=== PATIENT | female | born 1985 | race Caucasian/White ===

== ENCOUNTER → 2016-10-07 | Outpatient (CLI) | payer MEDICAID ==
[2016-10-07 11:19] LABS: CH 33.1; CHCM 33.8; HCT 36.3 % (34.0-46.0); HDW 2.48; HGB 12.2 gm/dL (11.4-16.0); MCHC 33.6 g/dL (31.0-37.0); MCV 98.3 fL (80.0-100.0); Mean Platelet Volume 7.9; RBC 3.69 m/uL (3.80-5.40); RDW 12.8 % (11.5-15.5); WBC 8.2 k/uL (3.8-10.6)
== END | disposition home or self-care (01) ==
LOC: LABWHC1 09:57
PROVIDERS: ATTEND Obstetrics & Gynecology
DX: Z34.92 Encounter for supervision of normal pregnancy, unspecified, second trimester (principal); Z3A.00 Weeks of gestation of pregnancy not specified
CPT/HCPCS: 36415; 82950; 85027

== ENCOUNTER → 2016-10-14 | Outpatient (CLI) | payer MEDICAID ==
[2016-10-14 12:14] LABS: Glucose 3 Hour, Gest 117 mg/dL
== END | disposition home or self-care (01) ==
LOC: LABWHC1 08:04
PROVIDERS: ATTEND Obstetrics & Gynecology
DX: O99.810 Abnormal glucose complicating pregnancy (principal); Z3A.00 Weeks of gestation of pregnancy not specified
CPT/HCPCS: 36415; 82951; 82952

== ENCOUNTER → 2016-11-25 | Outpatient (CLI) | payer MEDICAID ==
--- NOTE | 2016-11-25 11:09 | US ---
EXAMINATION TYPE: US OB anatomy transabd third trimester DATE OF EXAM: 11/25/2016 10:36 AM COMPARISON: 08/31/2016 second trimester ultrasound August 31, 2016 CLINICAL HISTORY: Large for Dates O36.63xo TECHNIQUE: Transabdominal (TA) GESTATIONAL AGE / DATING Physician Established: (32 weeks/1 days) EDC: 01/19/2017 Dates by LMP: (32 weeks/5 days) EDC: 01/19/2017 Dates by First Scan: (31 weeks/6 days) EDC: 01/21/2017 Dates by Current Scan: (32 weeks/3 days) EDC: 01/17/2017 SURVEY IUP: Single PLACENTA: Fundal PREVIA: No Previa ROMARIO: 15.9 cm Normal CERVICAL LENGTH (transabdominal: norm > 3.0cm): cm BIOMETRY PRESENTATION: Vertex LIE: Oblique BPD: 8.0 cm 32 weeks / 1 days HC: 29.4 cm 32 weeks / 3 days AC: 29.0 cm 33 weeks / 0 days FL: 6.2 cm 32 weeks / 2 days ESTIMATED WEIGHT IN GRAMS: 2016 grams ESTIMATED WEIGHT IN LBS/OZS: 4 lbs. 7 oz. WEIGHT PERCENTAGE BASED ON ESTABLISHED DATES: 55% HC/AC: 1.0 Normal FL/AC: 21 Normal HEART RATE: 130 bpm RHYTHM: Normal ANATOMY SEEN (within normal limits): * Lateral Vent (< 1 cm) 0.6 cm * Cisterna Magna (< 1.1 cm) 0.8 cm * Cerebellum (varies with age) 3.5 cm Midline Falx Cavus Septi Pellucidi Four Chamber Heart Outflow tracts: LVOT/RVOT Stomach Situs Nose / Lips Diaphragm Kidneys (bilateral) Bladder Cord Insert Three Vessel Cord Longitudinal Spine Transverse Spine ANATOMY NOT SEEN: * Nuchal Fold (< 0.6 cm) age Choroid Plexus (bilateral) age Arms (bilateral) crowding Legs (bilateral) crowding TECHNOLOGIST IMPRESSION: parameters congruent with age. Single live intrauterine gestation is redemonstrated. Normal cephalad presentation to fetus is curren tly seen. Amniotic fluid index is within normal limits. There is no ultrasound evidence for placenta previa. biometry measurements are congruent and felt within normal limits. Detailed anatomical survey shows no suspicious abnormality. Bilateral upper and lower extremities are not well seen due t o advanced age and crowding but are noted to appeared within normal limits on second trimester ultrasound. IMPRESSION: As above.
== END | disposition home or self-care (01) ==
LOC: RADUSWWP 09:40
PROVIDERS: ATTEND Obstetrics & Gynecology
DX: O36.63X0 Maternal care for excessive fetal growth, third trimester, not applicable or unspecified (principal); Z3A.32 32 weeks gestation of pregnancy
CPT/HCPCS: 76811

== ENCOUNTER 2017-01-13 05:55 | Inpatient (IN) | payer MEDICAID ==
--- NOTE | 2017-01-13 05:54 | P.HPOB ---
History of Present Illness H&P Date: 01/13/17 Chief Complaint: Patient is presenting for induction of labor. This patient is a pleasant 31-year-old 4 para 1 female estimated date of confinement 01/19/2017 estimated gestational age 39-2/7 weeks who presents to labor and delivery for induction of labor. Patient's care is complicated by labor and dilation that began about 32 weeks. Also was seen by maternal medicine for a ultrasound done here that was abnormal however level III ultrasound there was normal. Patient was noted to have a positive REED and has been recommended to have an a testing which has been done. Patient now presents for delivery with a favorable cervix at term. Review of Systems Constitutional: Denies chills, Denies fever Ears, nose, mouth and throat: Denies headache, Denies sore throat Cardiovascular: Denies chest pain, Denies shortness of breath Respiratory: Denies cough Gastrointestinal: Reports heartburn Genitourinary: Reports Menstruation: Reports amenorrhea Musculoskeletal: Denies myalgias Integumentary: Denies pruritus, Denies rash Neurological: Denies numbness, Denies weakness Psychiatric: Denies anxiety, Denies depression Endocrine: Denies fatigue, Denies weight change Past Medical History Past Medical History: Thyroid Disorder Additional Past Medical History / Comment(s): Patient has sinus tachycardia and a history of positive JONNY. Patient also has psoriasis History of Any Multi-Drug Resistant Organisms: None Reported Additional Past Surgical History / Comment(s): D&C Past Anesthesia/Blood Transfusion Reactions: No Reported Reaction Past Psychological History: No Psychological Hx Reported Smoking Status: Never smoker Past Alcohol Use History: None Reported Past Drug Use History: None Reported - Past Family History Father Family Medical History: No Reported History Medications and Allergies Home Medications Medication Instructions Recorded Confirmed Type Levothyroxine Sodium [Synthroid] 25 mcg PO DAILY 07/16/14 11/23/16 History Pnv with Ca,No.72/Iron/FA 1 each PO DAILY 12/10/15 11/23/16 History [ Plus Tablet] Allergies Allergy/AdvReac Type Severity Reaction Status Date / Time No Known Allergies Allergy Verified 11/23/16 22:58 Exam - OBG Physical Exam Abdomen: bowel sounds normal, no diffuse tenderness, no bruit present, no guarding noted, no hepatomegaly, no splenomegaly, no mass Vagina: normal moisture, no discharge Cervix: no lesion (Cervix in the office was 4 cm dilated.), no discharge Uterus: enlarged (Fundal height was 38 cm.) Results blood work shows she is O+, rubella low positive, RPR nonreactive, hepatitis B negative she did have a [place] screen which was normal 46 excess, she is a abnormal Glucola with a normal three-hour gtt., group B strep was negative, ultrasounds as above. Assessment and Plan (1) Third trimester Narrative/Plan: This is a pleasant 31-year-old 4 para 1 female 39-2/7 weeks gestation who is admitted to labor and delivery for induction of labor. Plan is induction of labor and anticipate vaginal delivery. Status: Acute (2) Elective induction of labor planned Status: Acute
[2017-01-13] MEDS ORDERED: CARBOPROST TROMETHAMINE 250 MCG/ML 1 ML AMP IM PRN (06:04)
[2017-01-13] MEDS ORDERED: LIDOCAINE 1% (PF) 10 MG/ML (30 ML SDV) SQ PRN (06:04)
[2017-01-13] MEDS ORDERED: TERBUTALINE 1 MG/ML VIAL SQ PRN (06:04)
[2017-01-13] MEDS ORDERED: METHYLERGONOVINE 0.2 MG/ML 1 ML AMP IM PRN (06:04)
[2017-01-13] MEDS ORDERED: OXYTOCIN 10 UNIT/ML 1 ML VIAL IM PRN (06:04)
[2017-01-13] MEDS ORDERED: OXYTOCIN 20 UNITS/1000 ML NS 1,000 ML IV SCH ×2 (06:04→10:53)
[2017-01-13 06:25] VITALS: BMI 24.0
[2017-01-13] MEDS: LACTATED RINGERS 1,000 ML IV SCH ×2 (06:26→09:06)
[2017-01-13 06:47] LABS: Basophils % (A) 0 %; CH 33.1; CHCM 35.2; Eosinophils # (A) 0.1 k/uL (0-0.7); Eosinophils % (A) 1 %; HCT 38.5 % (34.0-46.0); HDW 2.67; HGB 13.5 gm/dL (11.4-16.0); Luc # (Auto) 0.31; Luc % (Auto) 3; Lymphocytes # (A) 1.2 k/uL (1.0-4.8); Lymphocytes % (A) 13 %; MCH 33.1 pg (25.0-35.0); MCV 94.5 fL (80.0-100.0); Mean Platelet Volume 7.6; Monocytes # (A) 0.7 k/uL (0-1.0); Monocytes % (A) 7 %; Neutrophils % (A) 75 %; RBC 4.07 m/uL (3.80-5.40); RDW 12.9 % (11.5-15.5); WBC 9.3 k/uL (3.8-10.6); WBC (Perox) 8.98
[2017-01-13] MEDS ORDERED: fentaNYL (PF) 50 MCG/ML 5 ML AMP ONE (08:23)
[2017-01-13] MEDS ORDERED: BUPIVACAINE (PF) 0.25% 30 ML VIAL ONE (08:23)
[2017-01-13] MEDS ORDERED: SODIUM CHLORIDE 0.9% 100 ML BAG ONE (08:23)
[2017-01-13] MEDS ORDERED: BUPIVACAINE (PF) 0.25% 25 ML, fentaNYL (PF) 200 MCG in SODIUM CHLORIDE 0.9% 71 ML EPIDURAL ONE (08:40)
[2017-01-13] MEDS ORDERED: diphenhydrAMINE 25 MG CAP PO PRN (10:53)
[2017-01-13] MEDS ORDERED: diphenhydrAMINE 50 MG/ML 1 ML VIAL IVP PRN (10:53)
[2017-01-13] MEDS ORDERED: LANOLIN CREAM 5 GM TUBE TOPICAL PRN (10:53)
[2017-01-13] MEDS ORDERED: ZOLPIDEM 5 MG TAB PO PRN (10:53)
[2017-01-13] MEDS ORDERED: WITCH HAZEL 1 EACH MED..PAD TOPICAL PRN (10:53)
[2017-01-13] MEDS ORDERED: BISACODYL 10 MG SUPP RECTAL PRN (10:53)
[2017-01-13] MEDS ORDERED: HYDROCORTISONE 2.5% RECTAL CREAM 30 GM TUBE RECTAL PRN (10:53)
[2017-01-13] MEDS ORDERED: Acetaminophen-Codeine 300-30mg TAB PO PRN ×2 (10:53)
[2017-01-13] MEDS ORDERED: IBUPROFEN 600 MG TAB PO PRN (10:53)
[2017-01-13] MEDS ORDERED: ACETAMINOPHEN TAB 325 MG TAB PO PRN (10:53)
[2017-01-13] MEDS ORDERED: MEASLES-MUMPS-RUBELLA VACC/PF 12,500 UNIT/0.5 ML VIAL SQ ONE (10:53)
[2017-01-13] MEDS ORDERED: SIMETHICONE 80 MG CHEWABLE PO PRN (10:53)
[2017-01-13] MEDS ORDERED: BENZOCAINE/MENTHOL SPRAY 1 GM/SPRAY AEROSOL TOPICAL PRN (10:53)
--- NOTE | 2017-01-13 12:31 | P.PROBDLV ---
Vaginal Delivery Note - . Vaginal Delivery Note: Normal vaginal delivery viable female Apgars 8 and 9 delivery time is 1045 hrs. Please see dictated H&P for intimate details of this patient's admission. Brief summary this is a pleasant 31-year-old 4 para 1 female 39 and one sevenths weeks gestation who is admitted to labor and delivery for induction of labor. On admission patient is 4 cm dilated has artificial rupture of membranes for clear fluid. Labor is induced with Pitocin per protocol. Patient does get an epidural for pain control. Labor progresses quickly and the patient does get to complete and pushes the head to the perineum. The posterior perineum was infiltrated 1% lidocaine and a midline episiotomy is made. We then have controlled delivery of the infant's head over the perineum. Mouth and nares are bulb suctioned. There is a nuchal cord which is easily reduced. We then have delivery with gentle downward traction of the anterior shoulder and posterior shoulder and rest this 's body. This is a vigorous viable female Apgars are 8 and 9 delivery time is 1045 hrs. After delivery of the infant the umbilical cord is doubly clamped and cut and appears to be trivascular. The placenta spontaneously delivered intact. Inspection of the perineum shows a second-degree laceration which was repaired with 3-0 Vicryl in the usual fashion. Excellent reapproximation is noted. and mother are stable delivery room. All counts are correct 3. There are no complications.
[2017-01-13 13:07] VITALS: RESP 16
[2017-01-13] MEDS: SENNOSIDES-DOCUSATE SODIUM 1 EACH TAB PO SCH ×2 (19:49→21:48)
--- NOTE | 2017-01-14 05:37 | P.PNOBGVD ---
Subjective - Subjective Patient reports: Reports appetite normal, Reports voiding normally, Reports pain well controlled, Reports ambulating normally : doing well Objective - Latest Vital Signs Latest vital signs: Vital Signs Temp Pulse Pulse Resp BP 01/14/17 00:00 98.2 F 86 16 115/75 01/13/17 20:00 97.4 F L 98 16 110/70 01/13/17 16:00 97.8 F 101 H 16 125/75 01/13/17 12:50 116 H 16 121/68 01/13/17 12:20 121 H 18 113/75 01/13/17 11:50 103 H 18 109/70 01/13/17 11:35 91 18 119/74 01/13/17 11:20 97.3 F L 96 18 134/81 01/13/17 11:05 96 18 119/73 01/13/17 10:50 108 H 18 114/67 01/13/17 06:20 97.5 F L 136 H 16 113/81 Intake and Output 01/13/17 01/13/17 01/14/17 14:59 22:59 06:59 Intake Total 513.3 Balance 513.3 Intake: Intake, IV Titration 513.3 Amount Oxytocin 20 Units/1000 ml 513.3 Ns 1,000 ml @ 1 MILLIUNIT/MIN 3 mls/hr IV .Q24H [facility] Rx#:[id number] Other: # Voids 1 1 - Exam Lungs: bilateral: normal Chest: Normal S1, Normal S2 Extremities: Present: normal Abdomen: Present: normal appearance, soft Uterus: Present: normal, firm Assessment and Plan (1) Third trimester Narrative/Plan: day #1. Patient is resting without complaints. She wishes to go home later today. Vital signs are stable she is afebrile. Uterus is firm nontender she's having normal lochia. My impression is a normal course. Plan is to continue routine care discharge home later today Current Visit: No Status: Acute Code(s): Z33.1 - STATE, INCIDENTAL SNOMED Code(s): 01012711 (2) Elective induction of labor planned Current Visit: No Status: Acute Code(s): DND0830 - SNOMED Code(s): 502035822
--- NOTE | 2017-01-14 05:39 | P.DS ---
Providers Date of admission: 01/13/17 05:55 Expected date of discharge: 01/14/17 Attending physician: Jairo Ellis Primary care physician: Jairo Ellis - Discharge Diagnosis(es) (1) Third trimester Current Visit: No Status: Acute (2) Elective induction of labor planned Current Visit: No Status: Acute Hospital Course: Please see dictated H&P for intimate details of this patient's admission. Brief summary this is a pleasant 31-year-old 4 para 1 female estimated gestational age 39 and one sevenths weeks gestation who is admitted to labor and delivery for elective induction of labor. Patient is admitted undergoes uncomplicated induction of labor and has a vaginal delivery viable female infant. Please see dictated delivery note. day 1 patient's felt to be stable for discharge home follow up with me in 6 weeks. Procedures: Normal spontaneous vaginal delivery. Patient Condition at Discharge: Good Plan - Discharge Summary New Discharge Prescriptions: Acetaminophen-Codeine 300-30mg [Tylenol w/codeine #3] 1 - 2 each PO Q4HR PRN # 30 tab PRN Reason: Mild Pain exceeding Tylenol Ibuprofen [Motrin] 600 mg PO Q6HR PRN #40 tab PRN Reason: Mild Pain Or Fever >= 100.5 Discharge Medication List Levothyroxine Sodium [Synthroid] 67.5 mcg PO DAILY 07/16/14 [History] Pnv with Ca,No.72/Iron/FA [ Plus Tablet] 1 each PO DAILY 12/10/15 [ History] Acetaminophen-Codeine 300-30mg [Tylenol w/codeine #3] 1 - 2 each PO Q4HR PRN # 30 tab 01/13/17 [Rx] Ibuprofen [Motrin] 600 mg PO Q6HR PRN #40 tab 01/13/17 [Rx] Follow up Appointment(s)/Referral(s): Jairo Ellis MD [Primary Care Provider] - 02/18/17 9:45 am Patient Instructions/Handouts: Vaginal Delivery (DC) Activity/Diet/Wound Care/Special Instructions: No intercourse or anything per vagina for 6 weeks. Please call if any fever, chills, excessive vaginal bleeding, and/or abdominal pain. Discharge Disposition: HOME SELF-CARE
[2017-01-14 09:35] VITALS: BP 110/68; PULSE 87; TEMP 98.4
[2017-01-14] MEDS: SENNOSIDES-DOCUSATE SODIUM 1 EACH TAB PO SCH (09:38)
== END 2017-01-14 12:15 | disposition home or self-care (01) | DRG 775 ==
LOC: 4FBP 05:55
PROVIDERS: ADMIT Obstetrics & Gynecology; ATTEND Obstetrics & Gynecology
PROC: 3E0R3CZ (ICD-10-PCS; principal; 2017-01-13)
PROC: 0KQM0ZZ Repair Perineum Muscle, Open Approach (ICD-10-PCS; principal; 2017-01-13)
PROC: 10907ZC Drainage of Amniotic Fluid, Therapeutic from Products of Conception, Via Natural or Artificial Opening (ICD-10-PCS; principal; 2017-01-13)
PROC: 0W8NXZZ Division of Female Perineum, External Approach (ICD-10-PCS; principal; 2017-01-13)
PROC: 00HU33Z Insertion of Infusion Device into Spinal Canal, Percutaneous Approach (ICD-10-PCS; principal; 2017-01-13)
PROC: 3E033VJ Introduction of Other Hormone into Peripheral Vein, Percutaneous Approach (ICD-10-PCS; principal; 2017-01-13)
PROC: 10E0XZZ Delivery of Products of Conception, External Approach (ICD-10-PCS; principal; 2017-01-13)
DX: O69.81X0 Labor and delivery complicated by cord around neck, without compression, not applicable or unspecified (principal); E07.9 Disorder of thyroid, unspecified; Z37.0 Single live birth; O70.1 Second degree perineal laceration during delivery; Z3A.39 39 weeks gestation of pregnancy; O99.284 Endocrine, nutritional and metabolic diseases complicating childbirth; Z79.899 Other long term (current) drug therapy
CPT/HCPCS: 85025; 88307; 90471; 90707

== ENCOUNTER → 2018-08-07 | Outpatient (CLI) | payer MEDICAID ==
--- NOTE | 2018-08-07 15:30 | US ---
EXAMINATION TYPE: US thyroid st tissue head/neck DATE OF EXAM: 08/07/2018 COMPARISON: NONE CLINICAL HISTORY: R13.10 Dysphagia, patient on thyroid meds, hypothyroidism GLAND SIZE: Right Lobe: 4.3 x 0.7 x 0.8 cm Overall Parenchyma: Slightly heterogenous Left Lobe: 4.0 x 0.7 x 0.8 cm Overall Parenchyma: Slightly heterogenous Isthmus Thickness: 0.2 cm NODULES RIGHT: # of nodules measured on right: 0 LEFT: # of nodules measured on left: 0 ISTHMUS: # of nodules measured in the isthmus: 0 Bilateral neck scanned, no evidence of lymphadenopathy. IMPRESSION: Prominent size of the there is slightly heterogenous thyroid gland without measurable nodule.
== END | disposition home or self-care (01) ==
LOC: RADUSWWP 14:07
PROVIDERS: ATTEND Internal Medicine
DX: E07.89 Other specified disorders of thyroid (principal)
CPT/HCPCS: 76536

== ENCOUNTER → 2018-08-15 | Outpatient (CLI) | payer MEDICAID ==
--- NOTE | 2018-08-15 11:05 | USB ---
Reason for exam: clinical finding. History: Family history of breast cancer in maternal grandmother. Took hormonal contraceptives for 3 years. Physical Findings: Nurse Summary: Patient complains of lump x 18 months, no breast feeding x 1 year, patient thinks its smaller now (nurse eddi). US Breast LT Left complete breast ultrasound includes all four quadrants, the retroareolar region and axilla. Finding demonstrates a 2.7 x 1.1 x 2.1cm solid, vascular lesion at 3 o'clock and a 0.4 x 0.4 x 0.4cm mixed lesion at the posterior nipple. These results were verbally communicated with the patient and result sheet given to the patient on 08/15/18. ASSESSMENT: Suspicious, BI-RAD 4 RECOMMENDATION: Ultrasound core biopsy of the left breast. Called Dr. Aceves with mammographic findings and has scheduled an appointment for the patient for 09/07/18 at 11:[address] Narayan. Biopsy scheduled for 08/28/18 at 12:20. PRELIMINARY REPORT CALLED AND FAXED TO DR. NARAYAN ON 08/15/18.
== END ==
LOC: RADUSWWP 09:33
PROVIDERS: ATTEND Internal Medicine
DX: N63.20 Unspecified lump in the left breast, unspecified quadrant (principal)

== ENCOUNTER → 2018-08-28 | Day surgery (SDC) | payer MEDICAID ==
[2018-08-28 11:33] VITALS: RESP 16; BMI 17.8
[2018-08-28 13:23] VITALS: BP 109/68; PULSE 76; TEMP 99
--- NOTE | 2018-08-28 14:06 | USB ---
EXAMINATION TYPE: US biopsy breast VAD LT DATE OF EXAM: 08/28/2018 CLINICAL HISTORY: 33-year-old female with palpable mass that developed during recent breast-feeding. R92.8 . TECHNIQUE: Ultrasound guided core biopsy of the left breast. COMPARISON: Ultrasound 08/15/2018 FINDINGS: The procedure of ultrasound guided core biopsy was explained to the patient. Benefits, alternatives, and risks were discussed. An informed consent was then obtained. The patient was placed in supine positioning for imaging and for the procedure. The overlying skin was prepped and draped in usual sterile fashion. Lidocaine buffered with bicarbonate was used as anesthetic into the skin followed by lidocaine/epinephrine mixture into the subcutaneous tissues to the area of concern in the right o'clock left breast. Under ultrasound guidance, a 13-gauge vacuum assisted Mammotome Elite biopsy gun device was used to obtain 7 core samples. Following this, a coil clip was left in lesion. The patient tolerated the procedure well without any immediate complication. The patient was kept in the radiology department for short stay after the procedure and then discharged home in stable condition. Postprocedure mammogram was deferred due to patient's young age and presence of the clinically apparent palpable abnormality. If excision is warranted in the future, mammogram can be obtained at that time if needed. IMPRESSION: Successful, uncomplicated ultrasound guided core biopsy of palpable area of concern in the 3:00 left breast with some differential considerations including large fibroadenoma, lactating adenoma, and phyllodes tumor. Full pathology results to follow. Pathology Results: Benign CORE BIOPSY, LEFT BREAST: Granulomatous mastitis. Negative for malignancy. Microcalcifications are present. AFB and GMS stains are negative for acid fast bacilli and fungi respectively. Recommendation Follow up ultrasound of the left breast in 6 months. SCOTTD
== END | disposition home or self-care (01) ==
LOC: RADUSWWP 11:20
PROVIDERS: ATTEND Surgery
DX: N61.0 Mastitis without abscess (principal)
CPT/HCPCS: 88305; 88312; 19083; A4648; J2001

== ENCOUNTER → 2019-08-29 | Outpatient (CLI) | payer BC ==
--- NOTE | 2019-08-29 11:44 | USB ---
Reason for exam: clinical finding. History: Family history of breast cancer in maternal grandmother. Benign US biopsy breast VAD LT of the left breast, August 28, 2018. Took hormonal contraceptives for 3 years. Physical Findings: Nurse Summary: small 0.2cm movable lump 2 o'clock left breast (nurse TM). US Breast LT Technologist: Damaris Pfeiffer Left complete breast ultrasound includes all four quadrants, the retroareolar region and axilla. Finding demonstrates a 2.6 x 1.3 x 0.7cm mixed, vascular lesion at 3 o'clock, biopsy benign and a 0.5 x 0.5 x 0.3cm cystic stable lesion at the posterior nipple. These results were verbally communicated with the patient and result sheet given to the patient on 08/29/19. ASSESSMENT: Benign, BI-RAD 2 RECOMMENDATION: Routine screening mammogram of both breasts at age 39.
== END | disposition home or self-care (01) ==
LOC: RADUSWWP 10:01
PROVIDERS: ATTEND Surgery
DX: R92.8 Other abnormal and inconclusive findings on diagnostic imaging of breast (principal)

== ENCOUNTER 2019-12-27 12:11 | Emergency (ER) | payer BC, OTHER ==
[2019-12-27 12:17] VITALS: BP 111/73; PULSE 82; RESP 18; TEMP 98.7
[2019-12-27] MEDS ORDERED: FLUORESCEIN STRIPS 1 MG STRIP LEFT EYE ONE (12:35)
[2019-12-27] MEDS ORDERED: PROPARACAINE 0.5% OPHTH DROPS 15 ML BTL LEFT EYE STA (12:35)
--- NOTE | 2019-12-27 12:42 | ED ---
Eye Problem HPI - General Chief complaint: Needlestick/Exposure Stated complaint: Bodily fluid from patient in eye Time Seen by Provider: 12/27/19 12:27 Source: patient Mode of arrival: ambulatory Limitations: no limitations - History of Present Illness Initial comments: Patient is a 34-year-old female presenting to the emergency department with exposure to bodily fluids in her left eye. Patient is an employee here at the hospital and states she was emptying a dialysis bag when the tube flipped back and splashed fluid into her left eye. Patient states she flushed her eye with 50ml of sterile saline. Patient states her left eye does feel irritated however there is no pain and she does not believe there is any foreign body. She denies any loss of vision or blurry vision. She denies wearing contacts. She has no other complaints. On arrival to the ER, her vitals are stable. - Related Data Home Medications Medication Instructions Recorded Confirmed Levothyroxine Sodium [Synthroid] 125 mcg PO DAILY 08/23/18 08/28/18 Omeprazole [PriLOSEC] 1 tab PO DAILY 08/28/18 08/28/18 Allergies Allergy/AdvReac Type Severity Reaction Status Date / Time No Known Allergies Allergy Verified 08/28/18 11:27 Review of Systems ROS Statement: Those systems with pertinent positive or pertinent negative responses have been documented in the HPI. ROS Other: All systems not noted in ROS Statement are negative. Past Medical History Past Medical History: Thyroid Disorder Additional Past Medical History / Comment(s): psoriasis History of Any Multi-Drug Resistant Organisms: None Reported Additional Past Surgical History / Comment(s): D&C Past Anesthesia/Blood Transfusion Reactions: No Reported Reaction Past Psychological History: Anxiety Smoking Status: Former smoker Past Alcohol Use History: None Reported Past Drug Use History: None Reported - Past Family History Father Family Medical History: No Reported History Mother Additional Family Medical History / Comment(s): Sinus Tachycardia General Exam - General Exam Comments Initial Comments: GENERAL: Well-appearing, well-nourished and in no acute distress. HEAD: Atraumatic, normocephalic. EYES: Pupils equal round and reactive to light, extraocular movements intact, sclera anicteric, conjunctiva are normal. Normal eye exam under foreseen stain. No foreign objects or other abnormality seen in left eye. ENT: TMs normal, nares patent, oropharynx clear without exudates. Moist mucous membranes. NECK: Normal range of motion, supple without lymphadenopathy or JVD. LUNGS: Breath sounds clear to auscultation bilaterally and equal. No wheezes rales or rhonchi. HEART: Regular rate and rhythm without murmurs, rubs or gallops. ABDOMEN: Soft, nontender, normoactive bowel sounds. No guarding, no rebound. No masses appreciated. : Deferred EXTREMITIES: Normal range of motion, no pitting or edema. No clubbing or cyanosis. NEUROLOGICAL: Normal speech, normal gait. PSYCH: Normal mood, normal affect. SKIN: Warm, Dry, normal turgor, no rashes or lesions noted. Limitations: no limitations Course Vital Signs 12/27/19 12:12 Temperature 98.7 F Pulse Rate 82 Respiratory 18 Rate Blood Pressure 111/73 O2 Sat by Pulse 96 Oximetry Medical Decision Making - Medical Decision Making 34-year-old female presenting with left eye irritation after dialysis bag contents splashed in left eye. PT flushed eye before arrival. PT's eye was then flushed with another 50ml of sterile saline in the ER. Patient's exam was normal today. No changes in visual acuity. No foreign objects seen. Patient declines prophylactic treatment at this time. Patient is up-to-date with her vaccines. Patient is stable for discharge and will follow-up with employee health. The sources blood was tested and is negative for rapid HIV testing. She is agreement with this plan of care. Patient discussed with Dr. Bass. Disposition Clinical Impression: Irritation of left eye Disposition: HOME SELF-CARE Condition: Stable Instructions (If sedation given, give patient instructions): Body Substance Exposure (ED) Additional Instructions: Please return to the Emergency Department if symptoms worsen or any other concerns. Follow-up with employee health as needed Is patient prescribed a controlled substance at d/c from ED?: No Referrals: Marquis Aceves MD [Primary Care Provider] - 1-2 days
== END 2019-12-27 14:45 ==
LOC: EC 12:11
DX: H57.89 Other specified disorders of eye and adnexa (principal); Z77.21 Contact with and (suspected) exposure to potentially hazardous body fluids; E07.9 Disorder of thyroid, unspecified; Z79.890 Hormone replacement therapy; Z79.899 Other long term (current) drug therapy; Z87.891 Personal history of nicotine dependence
CPT/HCPCS: 99283

== ENCOUNTER → 2020-01-22 | Outpatient (CLI) | payer BC | END | disposition home or self-care (01) | LOC: LABWHC1 07:27 | PROVIDERS: ATTEND Pediatrics Pediatric Infectious Diseases | DX: U07.1 COVID-19 (principal) | CPT/HCPCS: 87635 ==

== ENCOUNTER → 2020-06-24 | Outpatient (CLI) | payer BC ==
[2020-06-24 10:43] LABS: Basophils % (A) 1 %; Eosinophils # (A) 0.2 k/uL (0-0.7); Eosinophils % (A) 3 %; HCT 44.5 % (34.0-46.0); HGB 14.4 gm/dL (11.4-16.0); Lymphocytes # (A) 1.2 k/uL (1.0-4.8); Lymphocytes % (A) 22 %; MCHC 32.3 g/dL (31.0-37.0); MCV 99.2 fL (80.0-100.0); Mean Platelet Volume 7.9; Monocytes # (A) 0.3 k/uL (0-1.0); Monocytes % (A) 6 %; Neutrophils # (A) 3.7 k/uL (1.3-7.7); Neutrophils % (A) 67 %; Platelet Count 180 k/uL (150-450); RBC 4.49 m/uL (3.80-5.40); RDW 11.9 % (11.5-15.5); WBC 5.4 k/uL (3.8-10.6)
[2020-06-24 20:24] LABS: ALT 11 U/L (8-44); AST 23 U/L (13-35); African American GFR (CKD) 110.7 (60.0-200.0); Albumin/Globulin Ratio 1.84 (1.60-3.17); Alkaline Phosphatase 44 U/L (41-126); BUN/Creat Ratio 16.25 Ratio (12.00-20.00); Calcium 9.4 mg/dL (8.7-10.3); Carbon Dioxide 25.2 mmol/L (21.6-31.8); Chloride 105 mmol/L (96-109); Chol/HDL Ratio 2.41; Cholesterol 181 mg/dL (0-200); Globulin 2.5 g/dL (1.6-3.3); Glucose 87 mg/dL (70-110); Non-African American GFR(CKD) 95.5 (60.0-200.0); Potassium 3.8 mmol/L (3.5-5.5); Sodium 140 mmol/L (135-145); Total Bilirubin 0.7 mg/dL (0.2-1.2); Total Protein 7.1 g/dL (6.2-8.2); Triglycerides <50.0 mg/dL (0.0-149.0)
== END | disposition home or self-care (01) ==
LOC: LABWHC1 08:48
PROVIDERS: ATTEND Physician Assistant
DX: Z00.01 Encounter for general adult medical examination with abnormal findings (principal); E03.9 Hypothyroidism, unspecified; Z13.220 Encounter for screening for lipoid disorders
CPT/HCPCS: 36415; 80053; 80061; 84443; 85025

== ENCOUNTER → 2021-07-02 | Outpatient (CLI) | payer BC, OTHER | END | disposition home or self-care (01) | LOC: LABWHC1 08:58 | PROVIDERS: ATTEND Emergency Medicine | DX: Z20.822 Contact with and (suspected) exposure to COVID-19 (principal) | CPT/HCPCS: 87635 ==

== ENCOUNTER → 2021-07-03 | Outpatient (CLI) | payer BC, OTHER | END | disposition home or self-care (01) | LOC: LABWHC1 08:55 | PROVIDERS: ATTEND Emergency Medicine | DX: Z20.822 Contact with and (suspected) exposure to COVID-19 (principal) | CPT/HCPCS: 87635 ==

== ENCOUNTER → 2021-08-12 | Outpatient (CLI) | payer BC, OTHER | END | disposition home or self-care (01) | LOC: LABWHC1 12:18 | PROVIDERS: ATTEND Emergency Medicine | DX: U07.1 COVID-19 (principal) | CPT/HCPCS: 87635 ==

== ENCOUNTER → 2021-09-23 | Outpatient (CLI) | payer OTHER, MEDICAID | END | disposition home or self-care (01) | LOC: LABWHC1 11:01 | PROVIDERS: ATTEND Obstetrics & Gynecology | DX: N83.209 Unspecified ovarian cyst, unspecified side (principal) | CPT/HCPCS: 36415; 86304 ==

== ENCOUNTER 2022-02-19 10:07 | Day surgery (SDC) | payer MEDICAID ==
[2022-02-17 13:01] VITALS: BMI 19.2
[~2022-02-19 10:07] MED LIST: LACTATED RINGERS 1,000 ML IV SCH; LIDOCAINE 1% (10MG/ML) FOR IV START INTRADERMA PRN
[2022-02-19 10:36] VITALS: RESP 16; TEMP 98.3
[2022-02-19] MEDS ORDERED: fentaNYL (PF) 50 MCG/ML 2 ML AMP ONE (11:07)
[2022-02-19] MEDS ORDERED: MIDAZOLAM 2 MG/2 ML VIAL ONE (11:07)
[2022-02-19] MEDS ORDERED: PROPOFOL 10 MG/ML 20 ML VIAL IV ONE (11:07)
--- NOTE | 2022-02-19 11:23 | P.PCN ---
Date of Procedure: 02/19/22 Preoperative Diagnosis: GERD Postoperative Diagnosis: Gastritis Duodenitis Procedure(s) Performed: EGD with biopsy Anesthesia: PITO Surgeon: Guillermo Rseendez Pathology: other (Biopsies of duodenum, antrum, esophagus) Condition: stable Disposition: same day Indications for Procedure: 36-year-old female with symptoms of GERD. She has been on PPI and recently with Carafate with some minimal success. Plan is for upper endoscopy for further evaluation. Operative Findings: Inflammatory changes of the antrum of the duodenum Description of Procedure: The patient was brought to the endoscopy suite and placed in left lateral decubitus position and adequate sedation was achieved using conscious sedation. A bite block was placed and an endoscope was placed in the oropharynx and advanced under endoscopic visualization. The endoscope was advanced through the esophagus into the stomach, through the gastric antrum and in through the pylorus. The third portion of the duodenum was visualized. The endoscope was then slowly withdrawn. The first portion the duodenum was noted to have mild inflammatory changes. Biopsies were taken. The antrum was noted to have inflammatory changes. Biopsies were taken. The gastric body distended normally and the gastric folds appeared normal and flattened with insufflation. A retroflexed view of the fundus and GE junction revealed no significant hiatal hernia. The esophagus appeared endoscopically normal. Biopsies of the distal esophagus were taken. Excess air was removed and the scope was withdrawn and the procedure completed. The patient was then sent to PACU in stable condition.
[2022-02-19 11:42] VITALS: PULSE 72
[2022-02-19 11:53] VITALS: BP 93/57
== END 2022-02-19 12:09 | disposition home or self-care (01) ==
LOC: ORWHC2ENDO 10:07
PROVIDERS: ATTEND Surgery
DX: K21.00 Gastro-esophageal reflux disease with esophagitis, without bleeding (principal); K29.50 Unspecified chronic gastritis without bleeding; K29.80 Duodenitis without bleeding
CPT/HCPCS: 43239; 81025; 88305; J2250; J3010; J2704

== ENCOUNTER → 2022-09-13 | Outpatient (CLI) | payer MEDICAID ==
[2022-09-13 14:19] LABS: Basophils # (A) 0.05 X 10*3/uL (0.00-0.10); Basophils % (A) 0.8 %; Eosinophils # (A) 0.25 X 10*3/uL (0.04-0.35); Eosinophils % (A) 4.1 %; HCT 39.6 % (37.2-46.3); HGB 13.1 g/dL (12.0-15.0); Immature Grans, Automated 0.3 %; Lymphocytes # (A) 1.14 X 10*3/uL (0.90-5.00); Lymphocytes % (A) 18.6 %; MCH 30.6 pg (27.0-32.0); MCHC 33.1 g/dL (32.0-37.0); MCV 92.5 fL (80.0-97.0); Monocytes # (A) 0.62 X 10*3/uL (0.20-1.00); Monocytes % (A) 10.1 %; NRBC Per 100 WBC 0 /100 WBCS (0.0-0.0); Neutrophils # (A) 4.04 X 10*3/uL (1.80-7.70); Neutrophils % (A) 66.1 %; Platelet Count 206 X 10*3/uL (140-440); RBC 4.28 X 10*6/uL (4.10-5.20); RDW 12.4 % (11.5-14.5); WBC 6.12 X 10*3/uL (4.50-10.00)
[2022-09-13 14:32] LABS: Erythrocyte Sedimentation Rate 6 mm/Hr (0-20)
[2022-09-13 14:36] LABS: ALT 9 U/L (8-44); AST 22 U/L (13-35); African American GFR (CKD) 104.3 (60.0-200.0); Albumin 4.4 g/dL (3.8-4.9); Albumin/Globulin Ratio 1.59 (1.60-3.17); Alkaline Phosphatase 54 U/L (41-126); BUN/Creat Ratio 13.32 Ratio (12.00-20.00); Calcium 9.4 mg/dL (8.7-10.3); Carbon Dioxide 26.6 mmol/L (20.0-27.5); Chloride 102 mmol/L (96-109); Chol/HDL Ratio 3.28 Ratio; Globulin 2.7 g/dL (1.6-3.3); Glucose 96 mg/dL (70-110); LDL Cholesterol,Calculated 127.7 mg/dL (0.0-131.0); Potassium 3.9 mmol/L (3.5-5.5); Rheumatoid Factor, Qnt <10 IU/mL (0-15); Sodium 140 mmol/L (135-145); Total Protein 7.1 g/dL (6.2-8.2); VLDL Calculation 18.26 mg/dL (5.00-40.00)
[2022-09-13 19:17] LABS: Gliadin AB IgA, Deaminated NEGATIVE (NEGATIVE); Gliadin AB IgA, Unit <0.2 U/mL; Gliadin AB IgG, Deaminated NEGATIVE (NEGATIVE); Gliadin AB IgG, Unit 0.5 U/mL
[2022-09-15 07:38] LABS: ANA Pattern Speckled
== END | disposition home or self-care (01) ==
LOC: LABWHC1 07:05
PROVIDERS: ATTEND Physician Assistant
DX: Z00.01 Encounter for general adult medical examination with abnormal findings (principal); Z13.220 Encounter for screening for lipoid disorders; E03.9 Hypothyroidism, unspecified; K58.0 Irritable bowel syndrome with diarrhea
CPT/HCPCS: 36415; 80053; 80061; 83516; 84443; 85025; 85652; 86038; 86039; 86431

== ENCOUNTER → 2023-10-05 | Outpatient (CLI) | payer MEDICAID ==
--- NOTE | 2023-10-05 20:10 | MM ---
Reason for Exam: Screening (asymptomatic). Baseline mammogram. Patient History: Menarche at age 11. First Full-Term at age 30. Late child-bearing (after 29). Patient used Hormonal Contraceptives for 3 years. 08/28/2018, Benign Core Biopsy on the left side. Maternal grandmother had breast cancer. Last menstrual period: 09/17/2023 Risk Values: Marcelina 5 year model risk: 1.1%. NCI Lifetime model risk: 16.6%. Prior Study Comparison: Patient's first Mammogram. No prior studies available for comparison. Tissue Density: The breast tissue is heterogeneously dense. This may lower the sensitivity of mammography. Findings: Analyzed By CAD. Microclip left breast from prior biopsy. Grouped calcifications posterior upper outer quadrant left breast for which further magnification views are recommended. Otherwise, no discrete abnormality is seen. Overall Assessment: Incomplete: need additional imaging evaluation, BI-RAD 0 Management: Special View Mammogram of the left breast. Diagnostic Breast Ultrasound of the left breast. Additional views for the microcalcifications. Ultrasound for the patient reported lump.. [facility] will attempt to contact patient to return for supplemental views and ultrasound if indicated. Electronically signed and approved by: Martinez Kohli M.D. Radiologist
== END | disposition home or self-care (01) ==
LOC: RADMAMWWP 11:18
PROVIDERS: ATTEND Pediatrics
DX: Z12.31 Encounter for screening mammogram for malignant neoplasm of breast (principal); Z80.3 Family history of malignant neoplasm of breast
CPT/HCPCS: 77063; 77067

== ENCOUNTER → 2024-01-09 | Outpatient (CLI) | payer MEDICAID ==
--- NOTE | 2024-01-09 13:24 | MM ---
Reason for Exam: Follow-up at short interval from prior study. Last screening mammogram was performed 3 month(s) ago. Patient History: Menarche at age 11. First Full-Term at age 30. Late child-bearing (after 30). Patient used Hormonal Contraceptives for 3 years. 08/28/2018, Benign Core Biopsy on the left side. Maternal grandmother had breast cancer. Last menstrual period: 12/26/2023 Risk Values: Marcelina 5 year model risk: 1.1%. NCI Lifetime model risk: 16.6%. Prior Study Comparison: 10/05/2023 Bilateral MG 3D screening mammo w/cad, [facility]. Tissue Density: Left: There are scattered areas of fibroglandular density. Findings: Analyzed By CAD. Grouped calcifications in the left breast immediately adjacent to a biopsy clip felt to be postsurgical. No suspicious masses or organizing fluid collection. Overall Assessment: Benign, BI-RAD 2 Management: Screening Mammogram of both breasts in 1 year. Results were given to the patient verbally at the time of exam. Patient should continue monthly self-breast exams. A clinical breast exam by your physician is recommended on an annual basis. This exam should not preclude additional follow-up of suspicious palpable abnormalities. Note on Marcelina scores and lifetime risk: 1. A Marcelina score greater than 3% is considered moderate risk. If this is the case, consider specialist referral to assess eligibility for a risk reducing agent. 2. If overall lifetime risk for the development of breast cancer is 20% or higher, the patient may qualify for future screening with alternating mammogram and breast MRI. Electronically signed and approved by: Perez Mccllelan DO
== END | disposition home or self-care (01) ==
LOC: RADMAMWWP 12:49
PROVIDERS: ATTEND Pediatrics
DX: R92.322 Mammographic fibroglandular density, left breast (principal); Z80.3 Family history of malignant neoplasm of breast
CPT/HCPCS: 77061; 77065

== ENCOUNTER → 2024-10-01 | Outpatient (CLI) | payer MEDICAID ==
[2024-10-01 10:36] LABS: Basophils # (A) 0.04 X 10*3/uL (0.00-0.10); Basophils % (A) 0.8 %; Eosinophils # (A) 0.24 X 10*3/uL (0.04-0.35); Eosinophils % (A) 4.8 %; HCT 39.7 % (37.2-46.3); HGB 12.9 g/dL (12.0-15.0); Lymphocytes # (A) 0.99 X 10*3/uL (0.90-5.00); Lymphocytes % (A) 19.7 %; MCH 30.9 pg (27.0-32.0); MCHC 32.5 g/dL (32.0-37.0); MCV 95.2 FL (80.0-97.0); Mean Platelet Volume 11.7 FL (9.5-12.2); Monocytes % (A) 11.9 %; NRBC Per 100 WBC 0 X 10*3/uL (0.00-0.01); Neutrophils # (A) 3.15 X 10*3/uL (1.80-7.70); Neutrophils % (A) 62.6 %; Platelet Count 196 X 10*3/uL (140-440); RBC 4.17 X 10*6/uL (4.10-5.20); RDW 12.1 % (11.5-14.5); WBC 5.03 X 10*3/uL (4.50-10.00)
[2024-10-01 11:48] LABS: Chol/HDL Ratio 2.79 Ratio; VLDL Calculation 12.82 mg/dL (5.00-40.00)
[2024-10-01 11:49] LABS: ALT 12 U/L (8-44); AST 19 U/L (13-35); Albumin 4.3 g/dL (3.8-4.9); Albumin/Globulin Ratio 1.79 Ratio (1.60-3.17); Alkaline Phosphatase 48 U/L (41-126); BUN/Creat Ratio 14.43 Ratio (12.00-20.00); Blood Urea Nitrogen 10.1 mg/dL (9.0-27.0); Calcium 9.2 mg/dL (8.7-10.3); Carbon Dioxide 25.3 mmol/L (21.6-31.8); Chloride 105 mmol/L (96-109); Globulin 2.4 g/dL (1.6-3.3); Glucose 110 mg/dL (70-110); Potassium 4.4 mmol/L (3.5-5.5); Sodium 139 mmol/L (135-145); Total Bilirubin 0.4 mg/dL (0.3-1.2); Total Protein 6.7 g/dL (6.2-8.2)
== END | disposition home or self-care (01) ==
LOC: LABWHC1 06:53
PROVIDERS: ATTEND Pediatrics
DX: Z00.00 Encounter for general adult medical examination without abnormal findings (principal); Z13.220 Encounter for screening for lipoid disorders; E03.9 Hypothyroidism, unspecified; E55.9 Vitamin D deficiency, unspecified
CPT/HCPCS: 36415; 80053; 80061; 82306; 84443; 85025

== ENCOUNTER → 2025-01-09 | Outpatient (CLI) | payer MEDICAID ==
--- NOTE | 2025-01-09 10:51 | MM ---
Reason for Exam: Screening (asymptomatic). Last mammogram was performed 1 year(s) and 3 month(s) ago. Patient History: Menarche at age 11. First Full-Term at age 30. Late child-bearing (after 29). Patient used Hormonal Contraceptives for 3 years. 08/28/2018, Benign Core Biopsy on the left side. Maternal grandmother had breast cancer. Last menstrual period: 12/05/2024 Risk Values: Marcelina 5 year model risk: 1.2%. NCI Lifetime model risk: 16.5%. Prior Study Comparison: 10/05/2023 Bilateral MG 3D screening mammo w/cad, [facility]. 01/09/2024 Left MG 3D diag mammo w/cad , [facility]. Tissue Density: The breasts are extremely dense, which lowers the sensitivity of mammography. Findings: Analyzed By CAD. A group of benign-appearing calcifications with biopsy clip in the left breast posterior upper outer aspect is redemonstrated. There is no suspicious group of microcalcifications or new suspicious mass in either breast. Overall Assessment: Benign, BI-RAD 2 Management: Screening Mammogram of both breasts in 1 year. Some advise annual bilateral breast ultrasound surveillance and/or contrast enhanced mammography in patient's with background dense tissue. Patient should continue monthly self-breast exams. A clinical breast exam by your physician is recommended on an annual basis. This exam should not preclude additional follow-up of suspicious palpable abnormalities. Note on Marcelina scores and lifetime risk: 1. A Marcelina score greater than 3% is considered moderate risk. If this is the case, consider specialist referral to assess eligibility for a risk reducing agent. 2. If overall lifetime risk for the development of breast cancer is 20% or higher, the patient may qualify for future screening with alternating mammogram and breast MRI. [facility], , 01/09/2025 10:48 AM. Electronically signed and approved by: Conner Ricci M.D.
== END | disposition home or self-care (01) ==
LOC: RADMAMWWP 09:49
PROVIDERS: ATTEND Pediatrics
DX: Z12.31 Encounter for screening mammogram for malignant neoplasm of breast (principal); R92.343 Mammographic extreme density, bilateral breasts; R92.1 Mammographic calcification found on diagnostic imaging of breast; Z80.3 Family history of malignant neoplasm of breast; Z92.0 Personal history of contraception
CPT/HCPCS: 77063; 77067